=== PATIENT | male | born 1950 | race Caucasian/White ===

== ENCOUNTER → 2016-11-17 | Outpatient (CLI) | payer OTHER, MEDICARE | LOC: RAD 11:50 | DX: R91.8 Other nonspecific abnormal finding of lung field (principal) ==

== ENCOUNTER → 2016-12-28 | Outpatient (CLI) | payer OTHER, MEDICARE | LOC: CAT 08:49 | DX: R91.8 Other nonspecific abnormal finding of lung field (principal) ==

== ENCOUNTER → 2017-01-05 | Outpatient (CLI) | payer OTHER, MEDICARE | LOC: PET 03:25 | DX: C73 Malignant neoplasm of thyroid gland (principal); R91.8 Other nonspecific abnormal finding of lung field ==

== ENCOUNTER → 2017-01-25 | Outpatient (CLI) | payer OTHER, MEDICARE ==
[~2017-01-25] MED LIST: COUMADIN 3 MG TA3 M1 PO; COZAAR 50 MG TA50 M2 PO; ENOXAPARIN80 MG/0.1 INJECTION; FLOMAX0.4 MG PO; LASIX 20 MG TAB20 MG PO; LEVOTHYROXIN0.137 M1 PO; PROTONIX40 M4 PO; ZOCOR20 MG PO
[2017-01-25 12:23] LABS: CREATININE 1.2 mg/dL (0.7-1.3)
== END ==
LOC: LABMALL 11:55
PROVIDERS: Internal Medicine Pulmonary Disease
DX: D49.1 Neoplasm of unspecified behavior of respiratory system (principal); K80.20 Calculus of gallbladder without cholecystitis without obstruction

== ENCOUNTER 2018-08-14 11:36 | Inpatient (IN) | payer OTHER, MEDICARE ==
[~2018-08-14] VITALS: Ht 144.8 cm; Wt 58.8 kg
[2018-08-14] VITALS (7 sets, daily range): BP systolic 115–155; BP diastolic 70–112
[2018-08-14 12:08] LABS: ABSOLUTE NEUTROPHILS 3.5 thou/uL (1.4-8.2); BASOPHILS 0.7 % (0.0-2.0); EOSINOPHILS 1.2 % (0.0-3.0); HEMATOCRIT 41.4 % (42.0-52.0); HEMOGLOBIN 13.9 gm/dL (14.0-18.0); LYMPHOCYTES 20.2 % (24.0-44.0); MCH 28.9 pg (26.0-34.0); MCHC 33.5 g/dL (28.0-37.0); MCV 86.1 fL (80.0-100.0); MONOCYTES 8.8 % (1.0-8.0); PLATELET COUNT 231 thou/uL (150-400); POLYS 69.1 % (36.0-66.0); RBC 4.81 mil/uL (4.50-6.00); RDW 19.7 % (10.5-14.5)
[2018-08-14 12:14] LABS: CALCIUM 9.5 mg/dL (8.5-10.1)
[2018-08-14 12:15] LABS: POTASSIUM 3.2 mmol/L (3.5-5.1)
[2018-08-14 12:21] LABS: TOTAL BILIRUBIN 8.9 mg/dL (<0.1-1.0); TOTAL PROTEIN 8.7 g/dL (6.4-8.2)
[2018-08-14 12:44] LABS: PROTIME 196.1 Seconds (9.3-11.4)
[2018-08-14 12:47] LABS: URINE BILIRUBIN 3+ (Negative); URINE BLOOD 2+ (Negative); URINE CLARITY CLEAR; URINE COLOR BROWN; URINE GLUCOSE-RANDOM* NEGATIVE (Negative); URINE KETONES 1+ (Negative); URINE LEUKOCYTES-REFLEX TRACE (Negative); URINE PROTEIN (DIPSTICK) 2+ (Negative); URINE SPECIFIC GRAVITY 1.025 (1.005-1.035)
[2018-08-14 12:49] LABS: ICTOTEST (BILI CONFIRMATORY) Positive (Negative); URINE NITRITE-REFLEX POSITIVE (Negative)
[2018-08-14 12:57] LABS: BACTERIA-REFLEX 1-9 Few /HPF (None Seen); CASTS None Seen /LPF (None Seen); CRYSTALS None Seen /LPF (None Seen); MUCUS 0-3 Light strn/LPF (None Seen); SQUAMOUS None Seen /LPF (0-3); URINE RBC 3-10 Few /HPF (0-2); URINE WBC-REFLEX 6-15 Few /HPF (0-5)
[2018-08-14 12:59] LABS: ANISOCYTOSIS 1+; PLATELET ESTIMATE NORMAL
[2018-08-14 13:12] LABS: INR 19.2
[2018-08-14] MEDS ORDERED: SYNTHROID100 MC1 PO (15:36)
[2018-08-14] MEDS ORDERED: LASIX 40 MG TAB40 M2 PO (15:37)
[2018-08-14] MEDS ORDERED: ONDANSETRON HCL4 M2 PO (15:38)
[2018-08-14] MEDS ORDERED: [UNRECOGNIZED DRUG - OTHER] PO ×2 (15:38)
--- NOTE | 2018-08-14 18:27 | NUR ---
PT ARRIVED TO UNIT APPROX 1750 FROM ED FOR BILIARY OBSTRUCTION. PT ALERT AND ORIENTED X4. DENIES PAIN AND SOA. REPORTS VERY MILD ABD PAIN. VSS. SISTER AT BEDSIDE. GAIT UNASSESSED. ADMISSION COMPLETED. BLOOD BANK CALLED AT THIS TIME TO REPORT THAT FFP IS READY. WILL PASS TO NOC NURSE. PT JAUNDICED. WILL ASK IF HE WANTS TO REPLACE K+ FOR HYPOKALEMIA. NO DISTRESS NOTED.
[2018-08-15 03:57] LABS: PROTIME 51.5 Seconds (9.3-11.4)
[2018-08-15 04:02] LABS: ALBUMIN 2.5 g/dL (3.4-5.0); CALCIUM 8.9 mg/dL (8.5-10.1); CREATININE 0.9 mg/dL (0.7-1.3); MAGNESIUM 1.8 mg/dL (1.8-2.4); POTASSIUM 3.4 mmol/L (3.5-5.1); TOTAL BILIRUBIN 7.7 mg/dL (<0.1-1.0); TOTAL PROTEIN 7.1 g/dL (6.4-8.2)
[2018-08-15 04:13] LABS: HEMATOCRIT 35.2 % (42.0-52.0); MCH 28.8 pg (26.0-34.0); MCHC 33.6 g/dL (28.0-37.0); MCV 85.8 fL (80.0-100.0); RBC 4.1 mil/uL (4.50-6.00); RDW 19.3 % (10.5-14.5); WBC 4.2 thou/uL (4.0-11.0)
[2018-08-15 04:30] LABS: HEMOGLOBIN 11.8 gm/dL (14.0-18.0)
[2018-08-15 04:32] VITALS: BP 137/63
--- NOTE | 2018-08-15 04:57 | NUR ---
ASSUMED PT CARE AT 1900. VSS. PT A&0X4. PT GOT A UNIT OF FFP DURING THIS SHIFT, TOERATED IT WELL, NO ADVERSE REACTIONS NOTED. PT GOT UP TO USE THE RESTROOM ABOUT 2 TIMES TONIGHT WITH A SBA. PT WAS STEADY ON THIS FEET ALTHOUGHT HE REPORTED OCCASIONAL UNSTEADYNESS. HE USED CPAP OVERNIGHT, SATTED WELL. PT INR IS TRENDING DOWN, WAS 5.0 THIS AM. PT IS STABLE, RESTED WELL ALL NIGHT, NO REPORTS OF DISTRESS OR DISCOMFORT, WILL CONTINUE TO CLOSELY MONITOR PER POC .
[2018-08-15 07:05] VITALS: BP 115/76
[2018-08-15 11:04] VITALS: BP 148/80
[2018-08-15 15:40] VITALS: BP 117/62
--- NOTE | 2018-08-15 17:30 | NUR ---
ASSESSMENT DOCUMENTED. VSS. DENIED HAVING PAIN OR DISCOMFORT. SEEN BY DR CISNEROS. ORDERS NOTED. PT TO RECEIVE 1 UNIT OF FFP @ 4AM AND RECHECK INR @ 6AM IN THE MORNING. SISTER AT THE BEDSIDE UPDATED ON PT PLAN IF CARE. WILL CONTINUE TO MONITOR.
[2018-08-15 20:35] VITALS: BP 117/65
[2018-08-16 04:02] VITALS: BP 106/64; BP 109/59; BP 110/68
[2018-08-16 04:32] LABS: PROTIME 84.9 Seconds (9.3-11.4)
--- NOTE | 2018-08-16 04:33 | NUR ---
ASSUMED PT CARE AT 1900. VSS. PT A&OX4. ASSESSMENTS ARE CHARTED. PT RESTED WELL ALL NIGHT, THE SECOND UNIT OF FFP STARTED AT 0408 THIS AM. PT HAD NO REACTIONS TO TRANSFUSION, PT IS STABLE, NO COMPLAINTS OF DISCOMFORT OR RESPIRATORY DISTRESS. GOOD URINE OUTPUT, WILL CONTINUE TO MONITOR PER POC.
[2018-08-16 04:38] LABS: ALBUMIN 2.7 g/dL (3.4-5.0); CALCIUM 8.7 mg/dL (8.5-10.1); CREATININE 0.8 mg/dL (0.7-1.3); POTASSIUM 3.3 mmol/L (3.5-5.1); TOTAL BILIRUBIN 9.2 mg/dL (<0.1-1.0); TOTAL PROTEIN 6.9 g/dL (6.4-8.2)
[2018-08-16 04:40] LABS: INR 8.3
[2018-08-16 04:45] VITALS: BP 107/67
[2018-08-16 05:14] LABS: HEMATOCRIT 35.5 % (42.0-52.0); HEMOGLOBIN 12.1 gm/dL (14.0-18.0); MCH 29.3 pg (26.0-34.0); MCV 86.2 fL (80.0-100.0); RBC 4.11 mil/uL (4.50-6.00); RDW 20.3 % (10.5-14.5); WBC 4.1 thou/uL (4.0-11.0)
[2018-08-16 07:22] VITALS: BP 119/67
[2018-08-16 08:13] LABS: PROTIME 36.3 Seconds (9.3-11.4)
[2018-08-16 08:14] LABS: INR 3.5
[2018-08-16 10:34] VITALS: BP 110/71; BP 112/63; BP 118/75
[2018-08-16 11:02] VITALS: BP 110/71
[2018-08-16 13:29] LABS: INR 2.5; PROTIME 25.8 Seconds (9.3-11.4)
--- NOTE | 2018-08-16 17:56 | NUR ---
ASSESSMENT DOCUMENTED. PT ALERT AND ORIENTED. PLEASANT AND COOPERATIVE WITH CARES. VSS. DENIED HAVING PAIN OR DISCOMFORT. RECEIVED I UNIT OF FFP. NO ADVERSE REACTION NOTED. SISTERS UPDATED ON PT PLAN OF CARE. WILL CONTINUE TO MONITOR.
[2018-08-16 19:55] VITALS: BP 111/59
[2018-08-17 03:54] LABS: ALBUMIN 2.8 g/dL (3.4-5.0); DIRECT BILIRUBIN 6.2 mg/dL (<0.1-0.3); TOTAL BILIRUBIN 8.7 mg/dL (<0.1-1.0); TOTAL PROTEIN 6.4 g/dL (6.4-8.2)
--- NOTE | 2018-08-17 04:41 | NUR ---
ASSUMED PT CARE AT 1900. VS. PT A&0X4. PT REMAINS VERY PLEASANT. HE HAD A GOOD NIGHT. HE IS STEADY ON HIS FEET. NO COMPLAINTS OF PAIN OR DISCOMFORT, WILL CONTINUE TO MONITOR.
[2018-08-17 04:45] VITALS: BP 119/59
[2018-08-17 05:47] LABS: INR 3.3; PROTIME 33.7 Seconds (9.3-11.4)
[2018-08-17 07:19] VITALS: BP 117/73
[2018-08-17 11:10] VITALS: BP 123/89
--- NOTE | 2018-08-17 14:19 | NUR ---
Chart reviewed and case discussed with the care team. Pt is a&ox4 and was indep with gait and adl's prior to admission and lives alone in a mobile home. His sister lives near by and helps with errands, shopping and appointments. The pt is retired. He is steady on his feet and was evaluated by therapy. No cm interventions indicated at this time. Pt to have an ERCP tomorrow. Will follow along should dc planning needs arise.
[2018-08-17 15:02] LABS: HEMATOCRIT 37.8 % (42.0-52.0); HEMOGLOBIN 12.6 gm/dL (14.0-18.0)
[2018-08-17 15:49] VITALS: BP 108/46
--- NOTE | 2018-08-17 17:19 | NUR ---
ASSESSMENT DOCUMENTED. PT ALERT AND ORIENTED. VSS. RECEIVED PRN PAIN MED FOR LOWER BACK PAIN. NPO AFTER MIDNIGHT FOR ERCP IN THE MORNING. ORDERS GIVEN TO START TRANSFUSING FFP @ MIDNIGHT. SEE NURSING MSG. FAMILY UPDATED ON PT PLAN OF CARE. WILL CONTINUE TO MONITOR.
[2018-08-17 19:55] VITALS: BP 100/71
[2018-08-18] VITALS (7 sets, daily range): BP systolic 106–135; BP diastolic 64–87
[2018-08-18 03:27] LABS: PROTIME 20.6 Seconds (9.3-11.4)
[2018-08-18 04:26] LABS: HEMATOCRIT 32.7 % (42.0-52.0); MCH 29.2 pg (26.0-34.0); MCHC 33.7 g/dL (28.0-37.0); MCV 86.8 fL (80.0-100.0); RBC 3.77 mil/uL (4.50-6.00); RDW 20.8 % (10.5-14.5); WBC 3.6 thou/uL (4.0-11.0)
[2018-08-18 04:35] LABS: ALBUMIN 2.7 g/dL (3.4-5.0); DIRECT BILIRUBIN 7.2 mg/dL (<0.1-0.3); TOTAL BILIRUBIN 9.3 mg/dL (<0.1-1.0); TOTAL PROTEIN 7.1 g/dL (6.4-8.2)
--- NOTE | 2018-08-18 06:28 | NUR ---
ASSUMED PT CARE AT 1900 WITH NO SIGN OF DISTRESS NOTED IN PT. PT IS ALERT AND ORIENTED. UPON REPORT PT TO RECEIVED FFP SCHEDULED FOR A SCHEDULED ERCP. NO SCHEDULED MEDS. PT IS NPO AFTER MN. FFP TRANSFUSION STARTED. NO SIGN OF DISTRESS NOTED. FIRST UNIT OF FFP TRANSFUSED WITH NO REACTION. PT TOLERATED TRANSFUSION. NO SIGNS OF DISTRESS NOTED.
[2018-08-18 07:44] LABS: INR 1.6; PROTIME 16.7 Seconds (9.3-11.4)
[2018-08-18 11:45] LABS: INR 1.5; PROTIME 16.1 Seconds (9.3-11.4)
--- NOTE | 2018-08-18 18:09 | NUR ---
ASSESSMENT DOCUMENTED. PT ALERT AND ORIENTED. RECEIVED 1 UNIT OF FFP THIS AM. HAD ERCP THIS SHIFT. SEE DR. CROCKER'S NOTE. PT DENIES HAVING PAIN OR DISCOMFORT. VSS. WILL CONTINUE TO MONITOR.
[2018-08-18 18:44] LABS: ALBUMIN 2.7 g/dL (3.4-5.0); CALCIUM 8.5 mg/dL (8.5-10.1); CREATININE 0.9 mg/dL (0.7-1.3); POTASSIUM 3.8 mmol/L (3.5-5.1); TOTAL BILIRUBIN 10.4 mg/dL (<0.1-1.0); TOTAL PROTEIN 7.1 g/dL (6.4-8.2)
[2018-08-19 00:24] VITALS: BP 120/70
[2018-08-19 05:49] VITALS: BP 136/80
[2018-08-19 05:56] LABS: HEMATOCRIT 34.3 % (42.0-52.0); HEMOGLOBIN 11.5 gm/dL (14.0-18.0); MCH 29.3 pg (26.0-34.0); MCHC 33.7 g/dL (28.0-37.0); MCV 87.1 fL (80.0-100.0); RBC 3.94 mil/uL (4.50-6.00); WBC 5.3 thou/uL (4.0-11.0)
--- NOTE | 2018-08-19 06:10 | NUR ---
ASSUME CARE 83519. PT/VITALS STABLE. DENIES ANY PAIN EVEN WITH PALPATING THE ABDOMEN. UP WITH STB ASSIST. PT TOLERATING ACTIVITIES WELL. ASSESMENT CHARTED. PROGRESSING WELL. PT STILL LOOKS JAUNDICED, BUT ADEQUATE REST/URINE NOTED. BM NMOTED LAST NIGHT AND PT TOLERATING JELLO. NO N/V NOTED. PLAN IS TO TRANSFER PT TO ANOTHER FACILITY TO COMPLETLEY MANAGE REMAINING STONE IN BILE DUCT. WILL CONTINUE TO MONITOR AND FOLLOW WITH POC
[2018-08-19 08:00] VITALS: BP 129/67
[2018-08-19 09:10] LABS: ALBUMIN 2.7 g/dL (3.4-5.0); TOTAL BILIRUBIN 8.2 mg/dL (<0.1-1.0); TOTAL PROTEIN 7.5 g/dL (6.4-8.2)
--- NOTE | 2018-08-19 13:04 | P ---
[facility] [place] [address] PROCEDURE REPORT Name: MARIANA ANNA Room #: 208-P ADM IN M.R.#: [id number] Admission: 08/14/18 ������������������ Attend Phys: Obie Thomason MD Discharge: ������������������ Date of : 49 Report #: [id number] THIS REPORT FOR: //name// CC: Kush Burnham BRIEF HISTORY: The patient is a 67-year-old male with obstructive jaundice. He also has antithrombin III deficiency and His anticoagulation had to be corrected. He had obstructive jaundice. CT revealed evidence of 2 stones in the distal duct, the large one about 1 cm with dilated ducts. PREOPERATIVE DIAGNOSES: 1. Choledocholithiasis. 2. Obstructive jaundice. POSTOPERATIVE DIAGNOSES: 1. Choledocholithiasis. 2. Cholelithiasis. 3. Obstructive jaundice. MEDICATIONS: Intubation and general anesthesia. SPECIMEN: None. ESTIMATED BLOOD LOSS: None. PROCEDURES: ERCP with endoscopic sphincterotomy and attempted stone extraction. FINDINGS: Prior to intubation and general anesthesia, the procedure was discussed with the patient as well as the sister. Potential risks and its complications were discussed. They indicate they understand and desire that we proceed. DESCRIPTION OF PROCEDURE: The patient was taken to the Interventional Radiology suite. In addition, general anesthesia and placed in the prone position. Subsequently, the Olympus side-viewing endoscope was inserted in the cervical esophagus and advanced through the esophagus into the stomach and with little difficulty across the pylorus into duodenum. The papilla was identified. It was a full-appearing papilla, but overall it had a normal benign appearance. We cannulated the sphincter tome and with minimal difficulty accessed the common bile duct. We inserted the guidewire deep within the intrahepatics. We injected contrast and 2 stones were seen. He did have a dilated biliary duct. He had a relatively low takeoff of his cystic duct and there was evidence of cholelithiasis. Contrast freely flowed into the cystic duct and gallbladder. We then completed a sphincterotomy with minimal difficulty. Subsequently, a [facility] [address] [place] [address] PROCEDURE REPORT Name: MARIANA ANNA Room #: 208-P ADM IN M.R.#: [id number] Admission: 08/14/18 ������������������ Attend Phys: Obie Thomason MD Discharge: ������������������ Date of : 49 Report #: [id number] [employer] 1.5 cm trapezoid basket was advanced into the biliary tree and engaged one of the stones. We then hooked the basket up to the [employer] gun, but pulling on this would not crush the stone nor did the basket break. We then used a second gun with similar results. We could not crush the stone. We then cut the basket and pulled the scope out over the basket. We then inserted the Soehendra sheath over the cut wire down to the level of papilla. The crank was attached to the sheath. We then attached the wire and slowly turned the crank. Subsequently, the basket broke. Also, the tip of the basket came off in the bile duct. We then reinserted the ERCP scope and confirmed that the stone was still there and did not break. However, initially we could not even pass a guidewire past the stone, which was in the distal duct. However, with changing to an Acrobat wire, we were able to advance the wire above the stone. We were then successful in advancing the sphincterotome above the stone. At this point, it was felt best to place the stent as we were unsuccessful in breaking the stone or removing the stone. I also might add that the stone would not pass through the sphincterotomy uncrushed. We then used a 10-Jamaican 10 cm double pigtail stent, which passed into the proximal ducts and a stent was deployed without difficulty. The scope was withdrawn and the patient tolerated the procedure well. DISPOSITION: We were unable to crush the stone. Stent was placed. At this point, we are palliating with the stent. He will need to go to another center for further management of his common bile duct stone. ��������������������������������������������� <ELECTRONICALLY SIGNED> ���������������������������������������� By: Inder Poon MD ��������������������������������������������� 08/19/18 1304 [id number] Inder Poon MD /nt
[2018-08-19 16:00] VITALS: BP 116/79
--- NOTE | 2018-08-19 18:15 | NUR ---
PT PLEASANT AND COOPERATIVE WITH CARES. VSS. DENIED HAVING PAIN OR DISCOMFORT. SEEN BY DR. CROCKER. ORDERS NOTED. PT TOLERATED REGULAR DIET. SISTER AT THE BEDSIDE. WANTS TO KNOW WHAT IS THE PLAN OF CARE FOR PT AFTER DISCHARGE. DR CISNEROS NOTIFIED. NO CONCERNS AT THIS TIME. WILL CONTINUE TO MONITOR.
[2018-08-19 19:57] VITALS: BP 112/73
[2018-08-20 04:23] VITALS: BP 126/76
[2018-08-20 05:29] LABS: INR 1.2; PROTIME 12.4 Seconds (9.3-11.4)
[2018-08-20 05:31] LABS: ALBUMIN 2.5 g/dL (3.4-5.0); DIRECT BILIRUBIN 2.8 mg/dL (<0.1-0.3); TOTAL BILIRUBIN 3.7 mg/dL (<0.1-1.0); TOTAL PROTEIN 7.2 g/dL (6.4-8.2)
--- NOTE | 2018-08-20 05:39 | NUR ---
ASSUME CARE 1900. PT/VITALS STABLE. INTEERMITTENT BACK PAIN NOTED. TYLENOL FOR RELIEF. HEATING PAD PLACED TI HELP WITH PAIN MANAGEMENT. ASSESSMENT CHARTED. PROGRESSING WELL WITH POC. ADEQUATE REST NOTED. SR ON MONITOR. PLAN IS POSSIBLE DISCHARGE TODAY TO FOLLOW WITH OUTPT SURGERY FOR FURTHER REMOAL OF GALL STONES. WWILL CONTINUE TO MONITOR AND FOLLOW WITH POC
[2018-08-20 08:22] VITALS: BP 132/84
[2018-08-20 10:36] VITALS: BP 108/72
[2018-08-20 15:08] VITALS: BP 99/57
--- NOTE | 2018-08-20 17:34 | NUR ---
ASSESSMENT DOCUMENTED. PT ALERT AND ORIENTED. VSS. PLANS TO BE DISCHARGE IN AM. PT AND SISTER CONCERNED ABOUT BEING SENT HOME WITH INR OF 1.2. DR. CISNEROS AWARE. PT AND SISTER WANTS TO TALK TO RADIOLOGIC TECHNOLOGY PROGRAM DIRECTOR TO DISCUSS PLAN OF CARE AFTER DISCHARGE. WILL CONTINUE TO MONITOR.
[2018-08-20 19:55] VITALS: BP 117/68
[2018-08-21 04:45] VITALS: BP 110/64
--- NOTE | 2018-08-21 05:37 | NUR ---
ASSUME CARE 1900. PT STABLE. COMPLAINING OF LOWER BACK PAIN. HEATING PAD GIVEN. AVOIDING TYLENOL DUE TO HIGH LIVER ENZYMES. UP TO BATHROOM STB ASSIST. PROGRESSING WELL WITH POC. ASSESSMETN CHARTED. WILL PASS TO DAY NURSE THAT PT NEEDS CASE MANAGEMENT TO DISCUSS DISCHARGE WITH PT. PT SEEMS TO NOT WANT HOME HEALTH AID STATING "I WANT TO DO MY THINGS BY MYSELF." MIGHT BE MISTAKING HOME HEALTH AID WITH PENITENTIARY. CONCERNED ABOUT STONE. EDUCATED ON OUTPT SERVICE TO COMPLETE STONE REMOVAL PROCESS. WILL CONTINUE TO MONITOR AND FOLLOW WITH POC
[2018-08-21 06:13] LABS: PROTIME 10.5 Seconds (9.3-11.4)
[2018-08-21 06:18] LABS: ALBUMIN 2.6 g/dL (3.4-5.0); DIRECT BILIRUBIN 2.2 mg/dL (<0.1-0.3); TOTAL BILIRUBIN 2.9 mg/dL (<0.1-1.0); TOTAL PROTEIN 7.6 g/dL (6.4-8.2)
[2018-08-21 07:36] VITALS: BP 117/61
[2018-08-21 11:21] VITALS: BP 118/67
--- NOTE | 2018-08-21 14:17 | NUR ---
met with patient and sister at bedside. Sister concerned with patients INR and does not want him to return home. She and patient are agreeable to skilled care. patient has been at [facility] in the past and agreeable to referral to [facility]. DC corporate meeting planner to make referrl. Patients sister wants Dr Thurman consulted. Therapy evals only rec OT. Ordered PT to eval.
[2018-08-21 15:33] VITALS: BP 102/56
--- NOTE | 2018-08-21 16:01 | NUR ---
FAXED REFERRAL TO [facility] SPOKE WITH HO IN ADM. SHE RECEIVED REFERRAL AND WILL REVIEW DCP TO FAXE PT NOTES ONCE AVAILABLE. DCP TO FOLLOW.
[2018-08-21 20:15] VITALS: BP 113/54
[2018-08-22 04:20] VITALS: BP 100/66
--- NOTE | 2018-08-22 05:31 | NUR ---
ASSUMED CARE AROUND 1900. AXOX4. ON CPAP NOC. TELE MONITORED. DENIES ANY ABD PAIN/N/V. NO S/S ACUTE DISTRESS NOTED OR REPORTED DURING THIS SHIFT. WILL CONT TO MONITOR ANY CHANGES IN CONDITION.
[2018-08-22 07:45] VITALS: BP 103/69
[2018-08-22 08:00] LABS: INR 1.1; PROTIME 11.6 Seconds (9.3-11.4)
[2018-08-22] MEDS ORDERED: ENOXAPARIN60 MG/0.1 SUBQ ×2 (11:22→14:07)
[2018-08-22 12:08] VITALS: BP 101/59
[2018-08-22 14:03] VITALS: BP 101/59
[2018-08-22 14:28] VITALS: BP 101/59
--- NOTE | 2018-08-22 14:31 | NUR ---
PT. DISCHARGING TODAY TO HOME WITH HH. REFERRAL FAXED TO [facility] SPOKE WITH KINZA IN ADM. SHE RECEIVED REFERRAL AND WILL BE ABLE TO ACCEPT PT. AT DC. DC ORDERS/SUMMARY FAXED TO [facility] AND RECEIVED. THEY WILL NOTIFY PT. OF TIME OF VISITS.
--- NOTE | 2018-08-22 15:52 | NUR ---
Spoke with patient and sister at bedside regarding denial from [facility] for skilled care. Sp with Dr Thurman regarding patient can be off nexbar while at skilled but prefer remain on nexbar. Discussed with sister can try another skilled facility to determine if can accept. Sister reports they will just go home with HH care. They are familiar with Lovenox as patient has rec in past. Sister reports will assist patient with Lovenox. Sister aware HH care does not come to administer every shot. Plan home with HH.
--- NOTE | 2018-08-24 08:14 | HC ---
[facility] [place] [address] CONSULTATION Name: MARIANA ANNA Room #: 208-P DIS IN M.R.#: [id number] Admission: 08/14/18 ������������������ Attend Phys: Obie Thomason MD Discharge: 08/22/18 ������������������ Date of : 49 Report #: [id number] THIS REPORT FOR: //name// CC: Aman Ya DO Kai Menon MD DATE OF SERVICE: 08/22/2018 REASON FOR CONSULTATION: History of possible antithrombin deficiency and DVT of the leg in 2007 with IVC filter. HISTORY OF PRESENT ILLNESS: The patient is a 67-year-old gentleman I saw several years ago, who has a history of metastatic papillary thyroid cancer and also perhaps a lung cancer history. Also, his records are unavailable. He mostly was admitted here for jaundice and was found to have a supratherapeutic INR. He has common bile duct stones. He had an ERCP, most distal one has been removed, but per a note from Dr. Marc Ramirez on 08/20/2018, sounds like they were unable to remove all the common bile duct stones and they are discussing additional therapy in the future. He has now been back on his normal dose of Coumadin 3 mg and a question about whether he needs to stay in the hospital for continued anticoagulation. The patient is currently on a Med/Surg floor in room 208. He is eating breakfast. He denies any bleeding difficulties, any leg swelling or arm swelling or shortness of air to suggest he has any clot function. Denies any recent fevers or chills. He does feel slightly better since he had the ERCP and his bilirubin is coming back down. PAST MEDICAL HISTORY: Notable for the history of the DVT of the leg in 2007. He had an IVC filter placed at that time. I believe per recollection, his antithrombin 3 was around 37%, but I think this was done in the acute setting. I do not know whether it was ever repeated at a later date. Note that this probably could and should be done after things have settled down while the patient is on Coumadin alone. The patient did receive several units of FFP, which might have artificially elevated his antithrombin 3 temporarily. 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 Also, has a history of as mentioned Schmitz's esophagus. Also, history of IVC filter. Also, history of BPH, also history of cognitive delay, has a very supportive family. SOCIAL HISTORY: Not currently working. No tobacco, no alcohol, no street drug [facility] [address] [place] [address] CONSULTATION Name: MARIANA ANNA Room #: 208-P DIS IN M.R.#: [id number] Admission: 08/14/18 ������������������ Attend Phys: Obie Thomason MD Discharge: 08/22/18 ������������������ Date of : 48 Report #: [id number] use. CURRENT MEDICATIONS: At this time in the hospital include warfarin 3 mg daily. Note that was his dose prior to the biliary obstruction; Zofran p.r.n., Tylenol p.r.n., potassium chloride 40 mEq daily orally, furosemide 40 mg daily, losartan 50 mg daily, tamsulosin 0.4 mg daily, MiraLax 17 grams daily, levothyroxine 100 mcg daily and pantoprazole 40 mg daily. RECENT LABORATORY TESTS: Include a BUN of 10, creatinine of 0.9, AST 163, total bilirubin 2.9, though it had been as high as 10.4, direct bilirubin 2.2, alk phos 495, it had been 590, ALT 239, it had been 384. Albumin 2.6. INR on admission here had been 19.2. He was 1 yesterday, it is 1.1 today. White count is 5.3. Hemoglobin 11.5, note that on admission this admit it was 13.9, then 11.9 the next day, probably from hydration, MCV 87.1, platelets 203. RADIOLOGIC DATA: Radiologic studies this admit include ultrasound of the abdomen on 08/14/2018 showing a right renal cyst, mild gallbladder wall thickening with some gallbladder distention and small stones. CT abdomen and pelvis on 08/14/2018 showed interval increase in size of innumerable noncalcified pulmonary nodules. Note that this is as compared to I believe 01/2017. There is also new moderate intrahepatic and extrahepatic biliary ductal dilatation. Common bile duct measures 12 mm. Other report from the ERCP talks about choledocholithiasis, a biliary ductal dilatation as seen on recent CT. ERCP with attempted stone removal which was unsuccessful. An 8 mm ductal still remains within the common bile duct. Endoscopically placed biliary ductal stent extending from the central aspect of the left hepatic bile ducts across the abdomen into the region of the small bowel is noted. PHYSICAL EXAMINATION: GENERAL: The patient appears his stated age. VITAL SIGNS: Height is 4 feet 9 inches, 144.8 cm. Weight is 129.7 pounds or 58.8 kilograms. He is afebrile. Blood pressure is 103/69, O2 sat 99%, respirations 16, pulse 77, temperature 98.1. HEENT: Face is symmetrical. He is conversant and appears to be a reliable historian. LUNGS: Appear clear. HEART: Regular rate. ABDOMEN: Not fully examined, but slightly protuberant, not overly tender on general exam. EXTREMITIES: Without clubbing or cyanosis. ASSESSMENT AND PLAN: 1. 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 Would consider repeating the antithrombin 3 at some point in the future several weeks from now when the patient has been away from the [facility] and on Coumadin only to see if he is truly [facility] [address] [place] [address] CONSULTATION Name: MARIANA ANNA Room #: 208-P [facility] IN .R.#: [id number] Admission: 08/14/18 ������������������ Attend Phys: Obie Thomason MD Discharge: 08/22/18 ������������������ Date of : 48 Report #: [id number] antithrombin 3 deficient. If he is not then that may give us more choices in terms of anticoagulation with regards to novel oral anticoagulants or the use of heparinoids. 2. History of deep vein thrombosis in [address] with [address] in [address]. I feel the patient's anticoagulation with Coumadin could be continued as an outpatient with adjusted INR to target an INR of 2-3. 3. Common bile duct stone still in place status post ERCP. We will defer to GI and surgeons, additional therapy for this. 4. History of benign prostatic hypertrophy. Flomax as needed. 5. History of Schmitz's esophagus. Proton pump inhibitors per GI. 6. Cognitive delay. Supportive family. We will be available if questions arise. 7. Also, regarding prophylaxis. Would encourage ambulation and prophylactic measures to decrease the patient's risk for clot. Note that, he has risk for clot whether he is in the hospital or at home, but in the hospital, he may be at higher risk for attendant infections. I feel he is appropriate for outpatient management. ��������������������������������������������� <ELECTRONICALLY SIGNED> ���������������������������������������� By: Mariana Thurman MD ��������������������������������������������� 08/24/18 0814 [id number] Mariana Thurman MD /nt
== END 2018-08-22 15:35 | disposition home health service (06) | DRG 444 ==
LOC: ER 11:36 → 2N 15:25 → EROBS 15:25 → 2N 17:37 → ENTRNSPT 08-22 15:15 → EDTRNSPTSTS 08-22 15:22 → 2N 08-22 15:35
PROVIDERS: Hospitalist; Internal Medicine Gastroenterology; Nurse Practitioner; Nurse Practitioner Family; Specialist; ADMIT Internal Medicine
PROC: 30233K1 Transfusion of Nonautologous Frozen Plasma into Peripheral Vein, Percutaneous Approach (ICD-10-PCS; 2018-08-14)
PROC: 0F798DZ Dilation of Common Bile Duct with Intraluminal Device, Via Natural or Artificial Opening Endoscopic (ICD-10-PCS; principal; 2018-08-19)
PROC: 5A09357 Assistance with Respiratory Ventilation, Less than 24 Consecutive Hours, Continuous Positive Airway Pressure (ICD-10-PCS; 2018-08-21)
DX: K80.71 Calculus of gallbladder and bile duct without cholecystitis with obstruction (principal); E43 Unspecified severe protein-calorie malnutrition; E87.1 Hypo-osmolality and hyponatremia; D68.59 Other primary thrombophilia; C78.00 Secondary malignant neoplasm of unspecified lung; C73 Malignant neoplasm of thyroid gland; G80.9 Cerebral palsy, unspecified; K59.00 Constipation, unspecified; M62.84 Sarcopenia; E87.6 Hypokalemia; I10 Essential (primary) hypertension; K22.70 Barrett's esophagus without dysplasia; N40.0 Benign prostatic hyperplasia without lower urinary tract symptoms; K21.9 Gastro-esophageal reflux disease without esophagitis; Z86.718 Personal history of other venous thrombosis and embolism; Z86.711 Personal history of pulmonary embolism; Z87.442 Personal history of urinary calculi; Z68.28 Body mass index [BMI] 28.0-28.9, adult; Z80.0 Family history of malignant neoplasm of digestive organs
CPT/HCPCS: 10081; 62110; 62900

== ENCOUNTER 2018-11-02 16:44 | Emergency (ER) | payer OTHER, MEDICARE ==
[~2018-11-02] VITALS: Ht 147.3 cm; Wt 62.6 kg
[~2018-11-02 16:44] MED LIST changes: +ENOXAPARIN60 MG/0.1 SUBQ; +LASIX 40 MG TAB40 M2 PO; +ONDANSETRON HCL4 M2 PO; +SYNTHROID100 MC1 PO; +[UNRECOGNIZED DRUG - OTHER] PO
[2018-11-02 17:33] LABS: ABSOLUTE NEUTROPHILS 6.4 thou/uL (1.4-8.2); BASOPHILS 0.7 % (0.0-2.0); HEMATOCRIT 40.8 % (42.0-52.0); HEMOGLOBIN 13.5 gm/dL (14.0-18.0); LYMPHOCYTES 21.2 % (24.0-44.0); MCH 28.7 pg (26.0-34.0); MONOCYTES 6.9 % (1.0-8.0); PLATELET COUNT 195 thou/uL (150-400); POLYS 69.2 % (36.0-66.0); RBC 4.69 mil/uL (4.50-6.00); RDW 18.1 % (10.5-14.5); WBC 9.3 thou/uL (4.0-11.0)
[2018-11-02 17:42] LABS: CREATININE 0.9 mg/dL (0.7-1.3); POTASSIUM 4.6 mmol/L (3.5-5.1)
[2018-11-02 17:49] LABS: ALBUMIN 3.5 g/dL (3.4-5.0); TOTAL BILIRUBIN 0.8 mg/dL (<0.1-1.0); TOTAL PROTEIN 8.5 g/dL (6.4-8.2)
[2018-11-02] MEDS ORDERED: MUPIROCIN15 GM TOP (19:26)
[2018-11-02 19:49] VITALS: BP 159/73
== END 2018-11-02 19:50 | disposition home or self-care (01) ==
LOC: ER 16:44
PROVIDERS: Physician Assistant
DX: S90.421A Blister (nonthermal), right great toe, initial encounter (principal); S90.425A Blister (nonthermal), left lesser toe(s), initial encounter; S90.822A Blister (nonthermal), left foot, initial encounter; K21.9 Gastro-esophageal reflux disease without esophagitis; Z87.440 Personal history of urinary (tract) infections; Z86.718 Personal history of other venous thrombosis and embolism; Z79.899 Other long term (current) drug therapy; X58.XXXA Exposure to other specified factors, initial encounter; Y93.89 Activity, other specified; Y92.89 Other specified places as the place of occurrence of the external cause; Y99.8 Other external cause status

== ENCOUNTER → 2018-11-08 | Outpatient (CLI) | payer OTHER, MEDICARE ==
[~2018-11-08] MED LIST changes: +MUPIROCIN15 GM TOP
== END ==
LOC: HYPER 11-06 08:45
DX: S90.421A Blister (nonthermal), right great toe, initial encounter (principal); S90.422A Blister (nonthermal), left great toe, initial encounter; S90.425A Blister (nonthermal), left lesser toe(s), initial encounter; L84 Corns and callosities; C73 Malignant neoplasm of thyroid gland; E78.5 Hyperlipidemia, unspecified; R60.0 Localized edema; I10 Essential (primary) hypertension; M79.674 Pain in right toe(s); Z86.718 Personal history of other venous thrombosis and embolism; Z79.01 Long term (current) use of anticoagulants; X58.XXXA Exposure to other specified factors, initial encounter; Y93.89 Activity, other specified; Y92.89 Other specified places as the place of occurrence of the external cause; Y99.8 Other external cause status

== ENCOUNTER → 2018-11-20 | Outpatient (CLI) | payer OTHER, MEDICARE | LOC: HYPER 06:17 | DX: S90.421D Blister (nonthermal), right great toe, subsequent encounter (principal); S90.422D Blister (nonthermal), left great toe, subsequent encounter; S90.425D Blister (nonthermal), left lesser toe(s), subsequent encounter; L84 Corns and callosities; R60.0 Localized edema; C73 Malignant neoplasm of thyroid gland; E78.5 Hyperlipidemia, unspecified; I10 Essential (primary) hypertension; Z79.01 Long term (current) use of anticoagulants; Z86.718 Personal history of other venous thrombosis and embolism; X58.XXXD Exposure to other specified factors, subsequent encounter ==